=== PATIENT | male | born 1945 | race Caucasian/White ===

== ENCOUNTER 2021-02-13 04:27 | Emergency (ER) | payer MEDICARE, OTHER ==
[2021-02-13 05:06] LABS: BASOPHIL 0.8 % (0-2); EOSINOPHIL 1.9 % (0-7); HCT 46.4 % (42.0-52.0); HGB 15.6 g/dl (13.2-18.0); LYMPHOCYTE 12.1 % (15-48); MCH 32.6 pg (25.0-31.0); MCHC 33.6 g/dL (32.0-36.0); MCV 97.1 fL (78.0-100.0); MONOCYTE 5.4 % (0-12); MPV 9.8 fL (6.0-9.5); NEUTROPHIL 79.6 % (41-80); NRBC 0; PLT 192 K/uL (150-400); RBC 4.78 M/uL (4.70-6.00); RDW 11.8 % (11.5-14.0); WBC 9.1 K/uL (4.0-10.5)
[2021-02-13 05:23] LABS: ALBUMIN 3.8 g/dL (3.4-5.0); BILIRUBIN - TOTAL 0.6 mg/dL (0.2-1.0); BUN/CREAT RATIO (CALC) 15.4 RATIO; CREATININE 0.91 mg/dL (0.67-1.17); GLOBULIN (CALCULATION) 3.2 g/dL; POTASSIUM 4.2 mmol/L (3.5-5.1)
[2021-02-13 05:31] LABS: BILIRUBIN 1+ mg/dL (NEGATIVE); BLOOD NEGATIVE Ery/uL (NEGATIVE); CLARITY CLEAR (CLEAR); COLOR YELLOW (YELLOW); GLUCOSE (U) NORMAL (NORMAL); LEUKOCYTES NEGATIVE Leu/uL (NEGATIVE); NITRITE NEGATIVE (NEGATIVE); PROTEIN NEGATIVE (NEGATIVE); SPECIFIC GRAVITY >=1.030 (1.001-1.030); UROBILINOGEN 0.2 mg/dL (0.2-1.0)
[2021-02-13 05:31] LABS: LACTIC ACID 1.1 mmol/L (0.4-1.9)
[2021-02-13 07:25] LABS: INR 1.07 (0.9-1.2); PROTHROMBIN TIME 13.2 SECONDS (11.4-13.6); PTT 22.3 SECONDS (22.2-34.7)
== END 2021-02-13 08:34 | disposition other institution (70) ==
LOC: FER 04:27
PROVIDERS: Emergency Medicine Emergency Medical Services
DX: I71.4 Abdominal aortic aneurysm, without rupture (principal); F17.210 Nicotine dependence, cigarettes, uncomplicated; Z20.822 Contact with and (suspected) exposure to COVID-19
CPT/HCPCS: 36415; 80053; 81003; 83605; 83690; 84145; 84484; 85025; 85610; 85730; J2270; J2405; J7040; Q9967; U0002

== ENCOUNTER 2021-04-07 20:36 | Emergency (ER) | payer MEDICARE, OTHER ==
[2021-04-07 21:52] LABS: BILIRUBIN NEGATIVE (NEGATIVE); BLOOD NEGATIVE Ery/uL (NEGATIVE); CLARITY CLEAR (CLEAR); COLOR YELLOW (YELLOW); GLUCOSE (U) NORMAL (NORMAL); LEUKOCYTES NEGATIVE Leu/uL (NEGATIVE); NITRITE NEGATIVE (NEGATIVE); PROTEIN NEGATIVE (NEGATIVE); UROBILINOGEN 0.2 mg/dL (0.2-1.0)
[2021-04-07 21:54] LABS: BASOPHIL 0.5 % (0-2); EOSINOPHIL 3.5 % (0-7); HCT 28.5 % (42.0-52.0); HGB 8.7 g/dl (13.2-18.0); LYMPHOCYTE 8.1 % (15-48); MCH 30.1 pg (25.0-31.0); MCHC 30.5 g/dL (32.0-36.0); MCV 98.6 fL (78.0-100.0); MONOCYTE 6.1 % (0-12); MPV 10.8 fL (6.0-9.5); NEUTROPHIL 81.4 % (41-80); NRBC 0; PLT 186 K/uL (150-400); RBC 2.89 M/uL (4.70-6.00); RDW 14.3 % (11.5-14.0); WBC 10.8 K/uL (4.0-10.5)
[2021-04-07 22:04] LABS: ALBUMIN 1.9 g/dL (3.4-5.0); BILIRUBIN - TOTAL 0.8 mg/dL (0.2-1.0); BUN/CREAT RATIO (CALC) 39.7 RATIO; CREATININE 1.79 mg/dL (0.67-1.17); GLOBULIN (CALCULATION) 4.6 g/dL; POTASSIUM 4.7 mmol/L (3.5-5.1); TOTAL PROTEIN 6.5 g/dL (6.4-8.2)
[2021-04-07 22:09] LABS: LACTIC ACID 0.6 mmol/L (0.4-1.9)
[2021-04-07 22:32] LABS: CORONAVIRUS 2019 SARS-COV-2 NEGATIVE (NEGATIVE); INFLUENZA A NAA NEGATIVE (NEGATIVE)
[2021-04-08] MEDS ORDERED: DOXYCYCLINE HY100 MG PO (06:48)
== END 2021-04-08 07:50 | disposition home or self-care (01) ==
LOC: FER 20:36
PROVIDERS: Emergency Medicine Emergency Medical Services
DX: L76.82 Other postprocedural complications of skin and subcutaneous tissue (principal); E11.9 Type 2 diabetes mellitus without complications; Z20.822 Contact with and (suspected) exposure to COVID-19; Z98.890 Other specified postprocedural states; Z79.4 Long term (current) use of insulin; Z79.899 Other long term (current) drug therapy
CPT/HCPCS: 36415; 71045; 80053; 81003; 83605; 84145; 84484; 85025; 87040; 87070; 87077; 87088; 87186; 87205; 93005; U0002

== ENCOUNTER 2021-09-06 11:36 | Emergency (ER) | payer MEDICARE, OTHER ==
[~2021-09-06 11:36] MED LIST: DOXYCYCLINE HY100 MG PO
[2021-09-06 13:50] LABS: BASOPHIL 0.5 % (0-2); EOSINOPHIL 12.5 % (0-7); HCT 32.6 % (42.0-52.0); HGB 10.9 g/dl (13.2-18.0); LYMPHOCYTE 18.7 % (15-48); MCHC 33.4 g/dL (32.0-36.0); MCV 98.8 fL (78.0-100.0); MONOCYTE 7.4 % (0-12); MPV 9.1 fL (6.0-9.5); NEUTROPHIL 60.4 % (41-80); NRBC 0; PLT 225 K/uL (150-400); RDW 12.8 % (11.5-14.0); WBC 7.7 K/uL (4.0-10.5)
[2021-09-06 14:21] LABS: ALBUMIN 2.9 g/dL (3.4-5.0); BILIRUBIN - TOTAL 0.4 mg/dL (0.2-1.0); BUN/CREAT RATIO (CALC) 26.1 RATIO; C-REACTIVE PROTEIN 1.1 mg/dL (<=0.90); CREATININE 1.76 mg/dL (0.67-1.17); GLOBULIN (CALCULATION) 3.6 g/dL; POTASSIUM 5.3 mmol/L (3.5-5.1); TOTAL PROTEIN 6.5 g/dL (6.4-8.2)
[2021-09-06] MEDS ORDERED: CLINDAMYCIN 15150 MG PO (17:31)
== END 2021-09-06 18:19 | disposition home or self-care (01) ==
LOC: FER 11:36
PROVIDERS: Emergency Medicine
DX: I82.611 Acute embolism and thrombosis of superficial veins of right upper extremity (principal)
CPT/HCPCS: 36415; 71045; 80053; 84145; 85025; 85379; 86140; 87040; 93971

== ENCOUNTER 2021-10-06 19:21 | Emergency (ER) | payer MEDICARE, OTHER ==
[~2021-10-06 19:21] MED LIST changes: +CLINDAMYCIN 15150 MG PO
== END 2021-10-06 22:10 | disposition home or self-care (01) ==
LOC: FER 19:21
DX: K94.23 Gastrostomy malfunction (principal)
CPT/HCPCS: 74018

== ENCOUNTER 2021-12-28 00:32 | Emergency (ER) | payer MEDICARE, OTHER ==
[2021-12-28 01:54] LABS: BILIRUBIN NEGATIVE (NEGATIVE); BLOOD TRACE-INTACT Ery/uL (NEGATIVE); CLARITY CLEAR (CLEAR); COLOR YELLOW (YELLOW); GLUCOSE (U) NORMAL (NORMAL); LEUKOCYTES NEGATIVE Leu/uL (NEGATIVE); NITRITE NEGATIVE (NEGATIVE); PROTEIN NEGATIVE (NEGATIVE); SPECIFIC GRAVITY 1.015 (1.001-1.030); UROBILINOGEN 0.2 mg/dL (0.2-1.0); pH 8.5 (5.0-9.0)
[2021-12-28 02:03] LABS: BACTERIA TRACE
[2021-12-28 02:04] LABS: AMORPHOUS URATES CRYSTALS TRACE; SQUAMOUS EPITHELIAL CELLS RARE
[2021-12-28 02:52] LABS: BUN/CREAT RATIO (CALC) 19.4 RATIO; CREATININE 1.65 mg/dL (0.67-1.17); POTASSIUM 4.2 mmol/L (3.5-5.1)
[2021-12-28 02:54] LABS: BASOPHIL 0.6 % (0-2); EOSINOPHIL 8.1 % (0-7); HCT 30.1 % (42.0-52.0); LYMPHOCYTE 10.4 % (15-48); MCHC 33.2 g/dL (32.0-36.0); MCV 93.2 fL (78.0-100.0); MONOCYTE 6.2 % (0-12); MPV 8.8 fL (6.0-9.5); NEUTROPHIL 74.4 % (41-80); NRBC 0; PLT 239 K/uL (150-400); RBC 3.23 M/uL (4.70-6.00); RDW 12.7 % (11.5-14.0); WBC 11.2 K/uL (4.0-10.5)
== END 2021-12-28 04:26 | disposition home or self-care (01) ==
LOC: FER 00:32
PROVIDERS: Emergency Medicine Emergency Medical Services
DX: R33.9 Retention of urine, unspecified (principal); J44.9 Chronic obstructive pulmonary disease, unspecified
CPT/HCPCS: 36415; 80048; 81001; 85025; 87088

== ENCOUNTER 2022-01-13 16:45 | Emergency (ER) | payer MEDICARE | END 2022-01-13 20:23 | disposition home or self-care (01) | LOC: FER 16:45 | DX: R33.9 Retention of urine, unspecified (principal); J44.9 Chronic obstructive pulmonary disease, unspecified; Z87.891 Personal history of nicotine dependence; Z79.82 Long term (current) use of aspirin; Z79.899 Other long term (current) drug therapy ==

== ENCOUNTER 2022-02-04 09:49 | Emergency (ER) | payer MEDICARE ==
[~2022-02-04 09:49] MED LIST changes: +ASPIRIN EC81 MG PO; +CARDURA XL4 MG PO; +PEPCID AC20 MG PO; +THERA M PLUS T1 EACH PO; +VENTOLIN (2.5 MG/3 M INH
[2022-02-04 10:21] LABS: BASOPHIL 0.3 % (0-2); HCT 31.7 % (42.0-52.0); HGB 10.4 g/dl (13.2-18.0); LYMPHOCYTE 18.6 % (15-48); MCHC 32.8 g/dL (32.0-36.0); MCV 94.6 fL (78.0-100.0); MONOCYTE 11.4 % (0-12); MPV 9.3 fL (6.0-9.5); NEUTROPHIL 60.4 % (41-80); NRBC 0; PLT 162 K/uL (150-400); RBC 3.35 M/uL (4.70-6.00); RDW 13.3 % (11.5-14.0); WBC 5.9 K/uL (4.0-10.5)
[2022-02-04 10:37] LABS: BUN/CREAT RATIO (CALC) 20.7 RATIO; CREATININE 1.98 mg/dL (0.67-1.17); POTASSIUM 4.6 mmol/L (3.5-5.1)
[2022-02-05] MEDS ORDERED: TPN ELECTROLYTE20 M1 IV (08:37)
[2022-02-05] MEDS ORDERED: VENTOLIN (2.5 MG/3 M INH (08:39)
== END 2022-02-04 11:20 | disposition home or self-care (01) ==
LOC: FER 09:49
PROVIDERS: Emergency Medicine
DX: L30.9 Dermatitis, unspecified (principal); J44.9 Chronic obstructive pulmonary disease, unspecified; Z95.9 Presence of cardiac and vascular implant and graft, unspecified
CPT/HCPCS: 36415; 80048; 85025; 87040; 87077; 87186; 93971

== ENCOUNTER → 2022-02-05 | Day surgery (SDC) | payer MEDICARE, OTHER ==
[~2022-02-05] VITALS: Ht 188 cm; Wt 74.8 kg
[~2022-02-05] MED LIST changes: +TPN ELECTROLYTE20 M1 IV
== END | disposition home or self-care (01) ==
LOC: FAS 07:54
DX: Z12.11 Encounter for screening for malignant neoplasm of colon (principal); D12.3 Benign neoplasm of transverse colon; K57.30 Diverticulosis of large intestine without perforation or abscess without bleeding; K63.89 Other specified diseases of intestine; K58.9 Irritable bowel syndrome, unspecified; K63.2 Fistula of intestine; Z98.890 Other specified postprocedural states; Z93.1 Gastrostomy status; Z86.010 Personal history of colon polyps; Z79.82 Long term (current) use of aspirin; Z72.89 Other problems related to lifestyle; Z87.891 Personal history of nicotine dependence
CPT/HCPCS: J1610; J2370; J2704; J7120